=== PATIENT | female | born 1950 | race Caucasian/White ===

== ENCOUNTER 2023-07-29 20:00 | Emergency (ER) | payer MEDICARE, OTHER, SELFPAY ==
[2023-07-29 20:11] VITALS: BP 168/92
[2023-07-29 22:08] VITALS: BP 179/101
--- NOTE | 2023-07-29 23:43 | ED.GENMED ---
History of Present Illness
General
Chief Complaint: Skin Surface Trauma
Source: patient and family
Exam Limitations: none
Time Seen by Provider: 07/29/23 23:12
Nursing documentation reviewed up to this point in time: agreed with
Travel History
Have you had any contact with someone who has COVID-19?: No
Do you have any symptoms of coronavirus? Fever > 100 degrees, chills, cough, shortness of breath, sore throat, loss of taste or smell, muscle aches, or headache?: No
History of Present Illness
History of Present Illness:
Patient is a 73-year-old female from retirement sent for evaluation of fall. Patient was bending over at the sink and when she lifted her head she hit the right side of her head on a sharp edge of a wall. Son at bedside reports patient is
presently there for physical therapy she recently had a stroke and lost her peripheral vision on the right side which is what caused her to hit her head. She is on Plavix and Lovenox. She denies any headache no loss of conscious. She was sent by
the retirement for continued bleeding to small wound to forehead.
Patient has no other complaints. She denies any nausea vomiting. Son reports pt is at baseline behavior.
Review of Systems
Review of Systems
Allergies reviewed?: Yes
Other source history: family
All Other Systems: ROS reviewed and negative except as documented in HPI and ROS
Constitutional: Reports no symptoms; Denies fever, fatigue or chills
Respiratory: Reports no symptoms
ABD/GI: Reports no symptoms; Denies nausea or vomiting
Musculoskeletal: Reports no symptoms
Skin: Reports other (forehead laceration )
Neurological: Denies headache
Psychiatric: Reports no symptoms
Phy Exam
General Physical Exam
General Presentation: no apparent distress
General age: appears stated age
General Skin: warm and dry
General Habitus: normal
General Mental: alert
Eye Exam
Eye Exam: PERRL and EOMI
Eye Exam General: PERRL: bilateral and EOM intact: bilateral
Pupil Exam: Bilateral: round and reactive
Neurological Exam
Neurological Exam: alert and oriented x3
Musculoskeletal Exam
Musculoskeletal Exam: full ROM and other (no hematoma to forehead + less then 0.5 cm partial thickness bleeding laceration to forehead ; no c spine tenderness )
Skin Exam
Skin Exam: normal color and warm/dry
Psychiatric Exam
Psychiatric Exam: normal mood/affect
Course
Orders/Labs/Results
Orders:
Orders
07/29/23 20:[address] [CT Head W/o Iv Contrast] Urgent
Comment:
Reason For Exam: head injury
07/29/23 22:09
Electrocardiogram (*1) Urgent
Reason for Study: Hypertension, Benign
EKG- Treatment ONCE
07/29/23 23:44
Tetanus/Diphth/Acelpertussis [Adacel] 0.5 ml IM .ONCE ONE
07/29/23 23:50
Vital Signs- Treatment ONCE
Frequency: Once
07/29/23 22:09
07/29/23 22:09
Vital Signs
Initial and Last Documented VS:
Initial Vital Signs
Temp Pulse Resp BP Pulse Ox
98.8 F 89 18 168/92 99
07/29/23 20:11 07/29/23 20:11 07/29/23 20:11 07/29/23 20:11 07/29/23 20:11
Last Documented Vital Signs
Temp Pulse Resp BP Pulse Ox
98.8 F 81 20 183/98 100
07/29/23 20:11 07/29/23 23:55 07/29/23 23:55 07/29/23 23:55 07/29/23 23:55
Procedures
Laceration Closure
forehead:
Status of Wound: clean
Size of Wound in cm: 0.5
Description of Wound Edges: sharp
Preparation: cleaned with saline
Anesthesia: 1% Lidocaine with epi
Revision/Debridement: routine- no revision
Type of Closure: single layer closure and interrupted sutures
Skin Closure Material: 6-0 nylon
Number of sutures: 2
MDM/Problems Addressed
Differential Diagnosis Includes:
not limited to: laceration ,head injury
MDM/Problems Addressed:
Patient is a 72-year-old female presently in rehab at [place] [facility] status post CVA on Lovenox and Plavix she has loss of right peripheral vision from recent CVA and lifted her head up hitting her head on the corner of a wall sustaining a small
laceration. This laceration is small less than 0.5 cm partial-thickness however due to blood thinners has been bleeding. Injury occurred possibly around 1. Patient has been intermittently bleeding. She denies any nausea vomiting no loss of
consciousness no headache. CT head negative. Bleeding was stopped with 2 sutures that were placed. Patient was monitored here no acute distress looks well family at bedside plan to DC back to rehab,.
Chronic conditions affecting care:
cva on lovenox/plavix
*Radiology
Radiology exam reviewed: radiology read reviewed
*Pulse Oximetry
Patient hypoxic: no
*Critical Care Note
Total Time (30-74mins, 75-104mins- exclusive of procedures): Not Applicable
ED Attending Note
-
Portions of this chart may have been created with voice recognition software.� Occasional wrong word or��sound alike� substitutions may have occurred due to the inherent limitations of voice recognition software.
Discharge Plan
Departure
Patient Disposition: Home (Routine Discharge)
Date of Disposition: 07/29/23
Time of Disposition: 23:50
Patient with high blood pressure during this ER visit?: Yes
Condition: Fair
Covid-19: Not Applicable
Discharge Problem:
Head injury, Forehead laceration
Instructions: Head injury in adults, Laceration Repair With Stitches (DC), BLOOD PRESSURE
Prescriptions:
No Action
atorvastatin 80 mg Tablet
80 mg PO HS
acetaminophen 325 mg Tablet
650 mg PO Q6H PRN (Reason: mild pain)
thiamine HCl (vitamin B1) 100 mg Tablet
100 mg PO DAILY
melatonin 3 mg Tablet
3 mg PO HS
clopidogrel 75 mg Tablet
75 mg PO DAILY
amlodipine 5 mg Tablet
5 mg PO DAILY
aspirin 81 mg Tablet,Delayed Release (Dr/Ec)
81 mg PO DAILY
magnesium hydroxide [Milk of Magnesia] 400 mg/5 mL Suspension
30 ml PO HS PRN (Reason: if no bm x 3 days)
bisacodyl [Dulcolax (bisacodyl)] 10 mg Suppository
10 mg DE DAILY PRN (Reason: if no results for MOM)
lansoprazole 30 mg Capsule,Delayed Release(Dr/Ec)
30 mg PO DAILY
docusate sodium 100 mg Capsule
100 mg PO Q12H PRN (Reason: constipation)
insulin lispro 100 unit/mL Solution
2 - 10 sliding scale dose SC ACHS
Patient Comments:
07/29/2023: if 150-200= 2; 201-250= 4; 251-300= 6; 301-350= 8; 351-400= 10
tacrolimus 1 mg Capsule
1 mg PO Q12H
enoxaparin [Lovenox] 40 mg/0.4 mL Syringe
40 mg SC DAILY
Triple Antibiotic 3.5-400-5,000 [id number] Ointment In Packet
1 applic TOPICAL BID
Patient Comments:
07/29/2023: apply to forehead
cholecalciferol (vitamin D3) [Vitamin D3] 25 mcg (1,000 unit) Tablet
25 mcg PO DAILY
magnesium oxide 400 mg magnesium Tablet
400 mg PO BID
Activity Restrictions/Additional Instructions:
Keep wound clean and dry for 24 hours after 24 hours wash with soap and water pat dry apply small layer of antibiotic to the area. See family doctor for wound check in 2 days sutures are removed in 5 days.
Return if any signs infection of increased pain swelling redness drainage fever chills.
CT head negative
Patient received tetanus shot
Interventions
Interventions:
*Risk Screen - Suicide Last Done: 07/29/23 20:11
*General Assessment Last Done: 07/29/23 20:11
*Neglect/Abuse Screening Last Done: 07/29/23 20:11
ED- Fall Risk Assessment Last Done: 07/30/23 00:06
*ED COVID-19 Vaccine History Last Done: 07/29/23 20:11
*Nursing Disposition Last Done: 07/30/23 00:06
ED-Skin Assessment Last Done: 07/29/23 23:42
Discharge Date and Time
Discharge Date/Time: 07/30/23 00:06
Print Language: [place]
[2023-07-29] MEDS: ADACEL 0.5 ML IM (23:49)
[2023-07-29 23:55] VITALS: BP 183/98
== END 2023-07-30 00:06 | disposition home or self-care (01) ==
LOC: EMR 20:00
PROVIDERS: EMERGENCY PHYSICIAN Student in an Organized Health Care Education/Training Program
DX: S09.90XA Unspecified injury of head, initial encounter (principal); S01.81XA Laceration without foreign body of other part of head, initial encounter; W22.8XXA Striking against or struck by other objects, initial encounter; R03.0 Elevated blood-pressure reading, without diagnosis of hypertension; Z86.73 Personal history of transient ischemic attack (TIA), and cerebral infarction without residual deficits; Z23 Encounter for immunization
CPT/HCPCS: 99284; 12011; 90471; 70450; 90715; 93005